=== PATIENT | male | born 1945 | race Caucasian/White ===

== ENCOUNTER 2023-10-18 08:29 | Outpatient (CLI) | payer MEDICARE, OTHER ==
[2023-10-18 09:52] VITALS: PULSE 66; RESP 14; O2SAT 99
== END 2023-10-18 23:59 | disposition home or self-care (01) ==
LOC: RT 08:29
PROVIDERS: ATTEND Internal Medicine
DX: R94.30 Abnormal result of cardiovascular function study, unspecified (principal); E84.0 Cystic fibrosis with pulmonary manifestations
CPT/HCPCS: 94010; 94727; 94729; 94760

== ENCOUNTER 2024-10-30 18:30 | Emergency (ER) | payer MEDICARE, OTHER ==
[~2024-10-30] VITALS: Ht 172.7 cm; Wt 65.8 kg
[2024-10-30 19:23] LABS: MEAN PLATELET VOLUME 8.9 FL (7.4-10.4); RED CELL DISTRIBUTION WIDTH 14.0 % (11.5-14.5)
[2024-10-30 19:43] LABS: CREATININE 3.96 MG/DL (0.60-1.10); TOTAL CARBON DIOXIDE 26.0 MMOL/L (24-32); eCRCL 14 ML/MIN; eGFR 15 ML/MIN
--- NOTE | 2024-10-30 21:35 | Physician Documentation ---
History of Present Illness ~ Chief Complaint: Flank Pain Stated Complaint: KIDNEY STONES Time Seen by MD: 21:35 Mode of Arrival: POV HPI Patient presents to the emergency room with left lower quadrant pain. Symptoms started yesterday. He has had nothing for the pain. He does endorse having a large bowel movement prior to the pain beginning yesterday. No fevers. Medication Reconciliation Allergies: Coded Allergies: No Known Allergies (Unverified , 10/30/24) Review of Systems ROS All review of systems negative except as per HPI Physical Exam Vital Signs: Temperature: 99.3, Source: Temporal, Heart Rate: 60, Respiratory Rate: 16, BP: 143/66, Pulse Oximetry: 95, Weight: 65.800 Oxygen Flow Rate: 0 Physical Exam General: Patient is awake, alert, oriented x4 in no acute distress Head: Normocephalic and atraumatic. Eyes: Conjunctival normal. EOMI. PERRL. ENT: Mucous membranes moist. Neck: Supple, trachea is midline. Chest: Clear to auscultation bilaterally without rales, rhonchi, or wheezes. There is no accessory muscle use or retractions. Cardiac: RRR without murmurs, gallops, or rubs. Abd: Soft, nondistended, positive tenderness to palpation to left lower quadrant Progress Results/Orders Results/Orders Orders - CARSON TAPIA MD Ct Abdomen Pelvis (10/30/24 21:40) Cult Urine + [facility] (10/30/24 22:24) Ondansetron Disint. Tablet (Zofran Odt T (10/30/24 23:45) Amox Tr/Potassium Clavulanate (Augmentin (10/30/24 23:45) Completed Orders - CARSON TAPIA MD Cbc/Diff (10/30/24 18:46) BMP (10/30/24 18:46) Lipase (10/30/24 18:46) CMP (10/30/24 18:46) Ct Abdomen Pelvis (10/30/24 21:40) Ua W/Microscopic, Cult If Ind (10/30/24 22:00) Vital Signs 10/30/24 10/30/24 10/30/24 10/30/24 18:41 20:47 20:52 22:11 Temp 99.3 Pulse 90 60 60 Resp 16 16 16 14 B/P (MAP) 139/81 143/66 (91) 134/76 (95) Pulse Ox 98 95 95 O2 Flow Rate 0 0 0 Laboratory Tests Test 10/30/24 19:15 10/30/24 22:00 White Blood Count 10.5 Red Blood Count 3.97 L Hemoglobin 12.3 L Hematocrit 36.4 L Mean Corpuscular Volume 91.6 Mean Corpuscular Hemoglobin 30.8 Mean Corpuscular Hemoglobin Concent 33.7 Red Cell Distribution Width 14.0 Platelet Count 178 Mean Platelet Volume 8.9 Neutrophils (%) (Auto) 86.8 H Lymphocytes (%) (Auto) 6.7 L Monocytes (%) (Auto) 5.9 Eosinophils (%) (Auto) 0.4 Basophils (%) (Auto) 0.2 Neutrophils # (Auto) 9.1 H Lymphocytes # (Auto) 0.7 L Monocytes # (Auto) 0.6 Eosinophils # (Auto) 0.0 Basophils # (Auto) 0.0 CBC Comment Sodium Level 139 Potassium Level 4.2 Chloride Level 105 Carbon Dioxide Level 26.0 Anion Gap 8 Blood Urea Nitrogen 55 H Creatinine 3.96 H Estimated GFR/1.73 m2 15 BUN/Creatinine Ratio 13.9 Glucose Level 111 H Calcium Level 9.0 Total Bilirubin 0.6 Aspartate Amino Transf (AST/SGOT) 14 Alanine Aminotransferase (ALT/SGPT) 23 Alkaline Phosphatase 69 Total Protein 6.8 Albumin 3.2 L Globulin 3.6 Albumin/Globulin Ratio 0.9 L Lipase 95 H Chemistry Comments Urine Specimen Description Cln catch midstream Urine Color Yellow Urine Clarity Clear Urine pH 5.5 Urine Specific [place] 1.015 Urine Protein Trace Urine Glucose (UA) Negative Urine Ketones Negative Urine Occult Blood Trace-intact Urine Nitrite Negative Urine Bilirubin Negative Urine Urobilinogen 0.2 Urine Leukocyte Esterase Trace H Urine RBC 0-2 Urine WBC 5-10 H Urine Squamous Epithelial Cells Few Urine Bacteria Few Urine Mucus Few Urine Culture Indicated Indicated Volume Urine Centrifuged 10 ml Urine Comment Microbiology Date/Time Source Procedure Growth Status 10/30/24 22:24 Urine Clean Catch Midstream Urine Culture - Preliminary Culture received. Resulted Medical Decision Making Findings Patient presented to the emergency room with left lower quadrant pain. Differentials include but are not limited to diverticulitis constipation kidney stone pyelonephritis small-bowel obstruction therefore emergent labs and imaging indicated. Labs reassuring. CT scan consistent with diagnosis of divertic ulitis and we will treat accordingly with ER precautions discussed. Departure Disposition: HOME / SELF CARE / HOMELESS Impression: Primary Impression: Diverticulitis Condition: Stable Discharge Instructions: Diverticulitis, [id number] Referrals: NO PRIMARY CARE PROVIDER (PCP) Prescriptions Amoxicillin/Potassium Clav (AUGMENTIN 500-125 TABLET) 500 Mg-125 Mg Tablet 1 TAB PO Q12H for 10 Days, #20 TAB Prov: CARSON TAPIA MD 10/30/24 Education Educated: Patient Educated regarding: diagnosis, treatment, need for follow up Signature Scribe Signature: No scribe Attestation: The note accurately reflects work and decisions made by me.Carson Tapia MD 10/30/24 23:45 CARSON TAPIA MD Oct 30, 2024 21:35
[2024-10-30 22:14] LABS: LEUKOCYTE ESTERASE ,URINE TRACE (Neg); NITRITES, URINE NEGATIVE (Neg); OCCULT BLOOD,URINE TRACE-INTACT (Neg)
[2024-10-30 22:15] LABS: UA COLLECTION TYPE CLN CATCH MIDSTREAM
[2024-10-30 22:23] LABS: MUCUS STRANDS FEW /LPF (Neg); SQUAMOUS EPITHELIAL CELL,UR FEW /LPF (FEW)
--- NOTE | 2024-10-30 23:37 | RADIOLOGY REPORT ---
CT SCAN ABDOMEN AND PELVIS WITHOUT CONTRAST CLINICAL HISTORY: llq pain TECHNIQUE: Helical axial images are obtained from the lung bases through the pelvis without oral cont rast. No intravenous contrast was administered. Coronal and sagittal reformatted images were generate d from thin section reconstructions. One or more of the following radiation dose reduction techniques were used for this examination: automated exposure control, adjustment of the mA and/or kV according to patient size, use of iterative reconstruction technique. COMPARISON: None FINDINGS: LOWER THORAX: Peripheral reticulation in the imaged lung bases. This may be sequelae of edema or early interstitial disease. ABDOMEN AND PELVIS: Evaluation of visceral and vascular structures is limited due to lack of contrast administration. Subcentimeter calcified granuloma in the peripheral right hepatic dome. No other discrete, sizable h epatic lesions as visualized. The unenhanced spleen, pancreas and adrenals appear grossly unremarkable. No sizable, radiopaque chol elithiasis or biliary ductal dilatation. Cortical thinning of both kidneys with multiple bilateral renal cysts. Large staghorn type calculus i n the left upper pole measuring approximately 1.7 cm in diameter. A few additional scattered nonobstr ucting calculi / calcifications in both kidneys. No hydroureteronephrosis or sizable, obstructing ure teral calculi identified at this time. No evidence of abdominal aortic aneurysm. No evidence of small-bowel obstruction. Normal caliber appendix. Extensive descending and sigmoid c olon diverticulosis. Mild thickening of the distal descending colon with subtle pericolonic fat stran ding. No free intraperitoneal air or fluid identified at this time. No sizable bladder calculus. The prostate is enlarged with central calcifications. No destructive osseous lesions identified. IMPRESSION: Descending and sigmoid colon diverticulosis. Mild thickening and subtle pericolonic fat stranding ad jacent to the distal descending colon. This may be sequelae of chronic diverticular disease, however early/mild diverticulitis/colitis is also a possibility. Recommend follow-up to resolution to exclud e any underlying lesion. Other findings as above.
[2024-10-30] MEDS ORDERED: AMOX-419 PO (23:45)
[2024-10-30] MEDS: ondansetron 4mg rapidly disintigrating tab PO ONE (23:50)
[2024-10-30] MEDS: amox tr/potassium clavulanate 875/125mg TAB PO ONE (23:50)
[2024-10-30 23:57] VITALS: BP 130/79; PULSE 88; RESP 16; TEMP 98.7; O2SAT 100
== END 2024-10-31 | disposition home or self-care (01) ==
LOC: ER 18:31
DX: K57.32 Diverticulitis of large intestine without perforation or abscess without bleeding (principal)
CPT/HCPCS: 36415; 74176; 80053; 81001; 83690; 85025; 87088; 99284